=== PATIENT | female | born 1960 | race Hispanic/Latino ===

== ENCOUNTER 2021-08-20 21:13 | Emergency (ER) | payer BC ==
[~2021-08-20] VITALS: Ht 154.9 cm; Wt 71.7 kg
[2021-08-20] MEDS ORDERED: OCTYL 2-CYANOACRYLATE 1 EACH TP ONE (21:46)
[2021-08-20] MEDS ORDERED: TETANUS/DIPHTHERIA TOXOID [ADULT] 0.5 ML VIAL IM ONE ×2 (21:47→22:00)
[2021-08-20 21:56] VITALS: BP 130/74
[2021-08-20] MEDS ORDERED: OCTYL 2-CYANOACRYLATE 1 EACH TP SCH (22:00)
== END 2021-08-20 22:36 | disposition home or self-care (01) ==
LOC: EDH 21:13
DX: S61.215A Laceration without foreign body of left ring finger without damage to nail, initial encounter (principal); M19.90 Unspecified osteoarthritis, unspecified site; W26.8XXA Contact with other sharp object(s), not elsewhere classified, initial encounter; Y93.89 Activity, other specified; Y92.89 Other specified places as the place of occurrence of the external cause; Y99.8 Other external cause status
CPT/HCPCS: 12001; 90471; 90714

== ENCOUNTER → 2022-02-02 | Outpatient (CLI) | payer BC | END | disposition home or self-care (01) | LOC: RAH 09:48 | PROVIDERS: ATTEND Internal Medicine | DX: Z12.31 Encounter for screening mammogram for malignant neoplasm of breast (principal) | CPT/HCPCS: 77067 ==

== ENCOUNTER 2022-03-19 11:07 | Emergency (ER) | payer BC ==
[~2022-03-19] VITALS: Ht 154.9 cm; Wt 71.7 kg
[2022-03-19] MEDS ORDERED: DIPH25 PO (11:44)
[2022-03-19] MEDS ORDERED: PRED20TA3 PO (11:44)
[2022-03-19] MEDS ORDERED: DiphenhydrAMINE HCL 50 MG/ML VIAL IM ONE (12:00)
[2022-03-19] MEDS ORDERED: SOLU-MEDROL 125MG VIAL IM ONE (12:00)
[2022-03-19 12:10] VITALS: BP 152/62
== END 2022-03-19 12:14 | disposition home or self-care (01) ==
LOC: EDH 11:07
DX: S10.96XA Insect bite of unspecified part of neck, initial encounter (principal); L25.9 Unspecified contact dermatitis, unspecified cause; W57.XXXA Bitten or stung by nonvenomous insect and other nonvenomous arthropods, initial encounter; Y93.89 Activity, other specified; Y92.89 Other specified places as the place of occurrence of the external cause; Y99.8 Other external cause status
CPT/HCPCS: 99284; 96372 ×2; J1200; J2930

== ENCOUNTER → 2023-02-14 | Outpatient (CLI) | payer BC ==
[~2023-02-14] MED LIST: DIPH-1242 PO; PRED20TA3 PO
== END | disposition home or self-care (01) ==
LOC: RAH 10:38
DX: Z12.31 Encounter for screening mammogram for malignant neoplasm of breast (principal)
CPT/HCPCS: 77067

== ENCOUNTER → 2024-02-18 | Outpatient (CLI) | payer BC | END | disposition home or self-care (01) | LOC: RAH 09:14 | PROVIDERS: ATTEND Nurse Practitioner Family | DX: Z12.31 Encounter for screening mammogram for malignant neoplasm of breast (principal); R92.323 Mammographic fibroglandular density, bilateral breasts | CPT/HCPCS: 77067 ==

== ENCOUNTER → 2024-07-11 | Outpatient (CLI) | payer BC ==
--- NOTE | 2024-07-11 12:19 | HMCIMG ---
FOOT COMP 3+VWS RT HISTORY: Inflammatory polyarthropathy COMPARISON: None TECHNIQUE: 3 images of right foot were obtained. FINDINGS: Metatarsus valgus deformity is seen of the first toe. There is a tiny calcaneal spur. There is no acute displaced fracture or dislocation. Degenerative changes are seen. IMPRESSION: 1. Findings as described above.
--- NOTE | 2024-07-11 12:20 | HMCIMG ---
FOOT COMP 3+VWS LT HISTORY: Inflammatory polyarthropathy COMPARISON: None TECHNIQUE: 3 images of left foot were obtained. FINDINGS: There is no acute displaced fracture or dislocation. Degenerative changes are seen. Metatarsus valgus deformity is seen of the first toe. IMPRESSION: 1. Findings as described above.
--- NOTE | 2024-07-11 12:28 | HMCIMG ---
HAND 3+VWS RT HISTORY: Inflammatory polyarthropathy COMPARISON: None TECHNIQUE: 3 images of right hand were obtained. FINDINGS: There is no acute displaced fracture or dislocation. Degenerative changes are seen. IMPRESSION: 1. Findings as described above.
--- NOTE | 2024-07-11 12:29 | HMCIMG ---
HAND 3+VWS LT HISTORY: Inflammatory port arthropathy COMPARISON: None TECHNIQUE: 3 images of left hand were obtained. FINDINGS: Postop changes are seen with erosive changes involving the first carpometacarpal joint. There is no acute displaced fracture or dislocation. Degenerative changes are seen. IMPRESSION: 1. Findings as described above.
== END | disposition home or self-care (01) ==
LOC: RAH 10:56
PROVIDERS: ATTEND Internal Medicine
DX: M19.042 Primary osteoarthritis, left hand (principal); M19.041 Primary osteoarthritis, right hand; M19.072 Primary osteoarthritis, left ankle and foot; M19.071 Primary osteoarthritis, right ankle and foot; M20.12 Hallux valgus (acquired), left foot; M20.11 Hallux valgus (acquired), right foot; M77.31 Calcaneal spur, right foot; M06.4 Inflammatory polyarthropathy; Z98.890 Other specified postprocedural states
CPT/HCPCS: 73130; 73630

== ENCOUNTER → 2025-04-01 | Outpatient (CLI) | payer BC ==
--- NOTE | 2025-04-02 05:28 | HMCIMG ---
EXAM: CR left Hip, 2 View. CLINICAL HISTORY: PAIN IN LEFT HIP COMPARISON: None provided. FINDINGS: BONES: No acute fracture or aggressive appearing osseous lesion. JOINTS: No dislocation. The joint spaces are normal. SOFT TISSUES: The soft tissues are unremarkable. IMPRESSION: No acute osseous abnormality. /[place]
--- NOTE | 2025-04-02 05:29 | HMCIMG ---
EXAM: CR Lumbar Spine, 3 View. CLINICAL HISTORY: LOW BACK PAIN COMPARISON: None provided. FINDINGS: BONES: No acute fracture or aggressive appearing osseous lesion. ALIGNMENT: Alignment is within normal limits. No significant scoliosis. DISCS / DEGENERATIVE CHANGES: The disc spaces are preserved. SOFT TISSUES: The soft tissues are unremarkable. IMPRESSION: No acute lumbar spine abnormality evident. /[place]
== END | disposition home or self-care (01) ==
LOC: RAH 11:44
PROVIDERS: ATTEND Internal Medicine
DX: M25.552 Pain in left hip (principal); M54.50 Low back pain, unspecified
CPT/HCPCS: 72100; 73502

== ENCOUNTER → 2025-04-16 | Outpatient (CLI) | payer BC | END | disposition home or self-care (01) | LOC: RAH 10:05 | PROVIDERS: ATTEND Internal Medicine | DX: Z12.31 Encounter for screening mammogram for malignant neoplasm of breast (principal) | CPT/HCPCS: 77063; 77067 ==